=== PATIENT | female | born 1955 | race American Indian/Alaskan Native ===

== ENCOUNTER 2019-05-26 18:54 | Emergency (ER) | payer OTHER ==
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
[2019-05-26 19:28] VITALS: BP 168/106
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
[2019-05-26] MEDS ORDERED: HYDROcodone/ACETAMINOPHEN 5-325 MG TAB PO STA (20:51)
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
== END 2019-05-26 21:32 | disposition home or self-care (01) ==
LOC: ED 18:54
DX: S62.502A Fracture of unspecified phalanx of left thumb, initial encounter for closed fracture (principal); M25.562 Pain in left knee; M06.9 Rheumatoid arthritis, unspecified; Z79.899 Other long term (current) drug therapy; Z98.51 Tubal ligation status; Z90.710 Acquired absence of both cervix and uterus; V49.49XA Driver injured in collision with other motor vehicles in traffic accident, initial encounter; Y93.89 Activity, other specified; Y92.410 Unspecified street and highway as the place of occurrence of the external cause; Y99.8 Other external cause status